=== PATIENT | male | born 1990 | race Caucasian/White ===

== ENCOUNTER 2023-08-28 02:42 | Emergency (ER) | payer MEDICAID ==
[~2023-08-28] VITALS: Ht 172.7 cm; Wt 75.0 kg
[2023-08-28 02:47] VITALS: O2SAT 100
[2023-08-28 08:33] VITALS: BP 123/72; PULSE 95; RESP 18; TEMP 98.7
== END 2023-08-28 08:38 | disposition home or self-care (01) ==
LOC: ER 02:42
DX: F15.20 Other stimulant dependence, uncomplicated (principal)
CPT/HCPCS: 99283

== ENCOUNTER 2024-01-30 21:09 | Emergency (ER) | payer MEDICAID ==
[~2024-01-30] VITALS: Ht 180.3 cm; Wt 80.0 kg
[2024-01-30 21:16] VITALS: BP 128/76; PULSE 85; RESP 16; TEMP 97.5; O2SAT 95
[2024-01-30 23:43] LABS: CLARITY URINE CLEAR (CLEAR); COLOR URINE YELLOW (YELLOW); GLUCOSE URINE NEGATIVE (NEGATIVE); KETONES URINE TRACE (NEGATIVE); LEUKOCYTE ESTERASE URINE NEGATIVE (NEGATIVE); NITRITE URINE NEGATIVE (NEGATIVE); OCCULT BLOOD URINE NEGATIVE (NEGATIVE); PROTEIN URINE TRACE (NEGATIVE); SPECIFIC GRAVITY URINE 1.028 (1.005-1.030)
[2024-01-30 23:58] LABS: BASOPHILS % 0.3 % (0.0-2.0); EOSINOPHILS % 2.9 % (0.0-5.0); HEMATOCRIT. 43.4 % (42.0-52.0); HEMOGLOBIN. 14.4 g/dL (14.0-18.0); LYMPHOCYTES % 15.8 % (20.0-50.0); MEAN CORPUSCULAR HEMOGLOBIN 28.7 pg (28.0-32.0); MEAN CORPUSCULAR HGB CONC 33.2 g/dL (31.0-37.0); MEAN CORPUSCULAR VOLUME 86.6 fL (80.0-94.0); MEAN PLATELET VOLUME 7.4 fl (7.4-10.4); MONOCYTES % 8.5 % (2.0-8.0); NEUTROPHILS % 72.5 % (40.0-76.0); PLATELET 249 x1000/uL (130-400); RED BLOOD CELL COUNT 5.02 mill/uL (4.7-6.1); RED CELL DISTRIBUTION WIDTH 16.3 % (11.6-14.6)
[2024-01-31 00:04] LABS: CHLORIDE 104 mEq/L (98-107); SODIUM 136 mEq/L (136-145)
[2024-01-31 00:05] LABS: CALCIUM 9.3 mg/dL (8.7-10.4); CARBON DIOXIDE 27 mEq/L (21-32)
[2024-01-31 00:10] LABS: CREATININE 0.9 mg/dL (0.6-1.3)
[2024-01-31 00:11] LABS: GLUCOSE 103 mg/dL (70-105); UREA NITROGEN BLOOD 10 mg/dL (9-23)
[2024-01-31 00:12] LABS: ALANINE AMINOTRANSFERASE 21 IU/L (10-49); ASPARTATE AMINOTRANSFERASE 29 IU/L (<34)
[2024-01-31 00:13] LABS: BILIRUBIN DIRECT 0.1 mg/dL (<=3.0); BILIRUBIN TOTAL 0.4 mg/dL (0.1-1.0); PROTEIN TOTAL 6.6 g/dL (6.0-8.3)
[2024-01-31 00:37] LABS: BACTERIA URINE NONE SEEN; RBC URINE 0-2 /hpf (0-2); SQUAMOUS EPITHELIAL CELL URINE NONE SEEN /lpf (RARE/1+); WBC URINE 0-2 /hpf (0-2)
== END 2024-01-31 05:37 | disposition home or self-care (01) ==
LOC: ER 21:09
DX: R19.7 Diarrhea, unspecified (principal)
CPT/HCPCS: 36415; 71045; 80048; 80076; 81003; 85025; 99284